=== PATIENT | female | born 1950 | race Caucasian/White ===

== ENCOUNTER → 2016-12-16 | Outpatient (CLI) | payer MEDICARE ==
[~2016-12-16] MED LIST: ATOR20TA PO; AZIT-14 PO; DEXALENT; DEXL60CA PO; DEXOLANT; ESTR42.53 TP; FLUC200T PO; FLUCONAZOLE; METH4TAB6 PO; PILO5TAB PO; THYR30TA PO; [UNRECOGNIZED DRUG - CODE] SQ
== END | disposition home or self-care (01) ==
LOC: ROC 11:13
PROVIDERS: ATTEND Radiology Radiation Oncology
DX: C10.2 Malignant neoplasm of lateral wall of oropharynx (principal)
CPT/HCPCS: G0463

== ENCOUNTER → 2017-05-05 | Outpatient (CLI) | payer MEDICARE ==
[~2017-05-05] MED LIST changes: -AZIT-14 PO; +AZIT250T89 PO; +BIOT300T2 PO; +CHOL10003 PO; +UBID100C24 PO; +[UNRECOGNIZED DRUG - OTHER] PO
== END | disposition home or self-care (01) ==
LOC: STAR 12:54
PROVIDERS: ATTEND Thoracic Surgery (Cardiothoracic Vascular Surgery)
DX: Z01.818 Encounter for other preprocedural examination (principal); K80.20 Calculus of gallbladder without cholecystitis without obstruction; K21.9 Gastro-esophageal reflux disease without esophagitis
CPT/HCPCS: 93005

== ENCOUNTER 2017-05-14 08:44 | Day surgery (SDC) | payer MEDICARE ==
[~2017-05-14] VITALS: Ht 157.5 cm; Wt 59.1 kg
[~2017-05-14 08:44] MED LIST changes: -DEXL60CA PO; +DEXL60CA2 PO
[2017-05-14] MEDS ORDERED: MIDAZOLAM 1 MG/ML, 2ML ONE (09:19)
[2017-05-14] MEDS ORDERED: FENTANYL PF 100 MCG/2ML ONE ×3 (09:19→10:35)
[2017-05-14] MEDS ORDERED: BUPIVACAINE/PF 0.5% ONE (09:41)
[2017-05-14] MEDS ORDERED: SCOPOLAMINE PATCH, 1.5MG PATCH.TD72 TD ONE ×2 (09:48)
[2017-05-14] MEDS ORDERED: PROPOFOL 10 MG/ML, 20ML ONE (09:51)
[2017-05-14] MEDS ORDERED: ONDANSETRON 2MG/ML, 2ML ONE (09:51)
[2017-05-14] MEDS ORDERED: ROCURONIUM 10 MG/ML ONE (09:51)
[2017-05-14] MEDS ORDERED: NEOSTIGMINE 1 MG/ML, 10ML ONE (09:51)
[2017-05-14] MEDS ORDERED: GLYCOPYRROLATE 0.2MG/1ML ONE (09:51)
[2017-05-14] MEDS ORDERED: DEXAMETHASONE 4 MG/ML, 1ML ONE (09:51)
[2017-05-14] MEDS ORDERED: SUCCINYLCHOLINE 20 MG/ML, 10ML ONE (09:51)
[2017-05-14] MEDS ORDERED: CLINDAMYCIN 150 MG/ML, 6ML ONE (09:52)
[2017-05-14] MEDS ORDERED: LACTATED RINGERS 1,000 ML IV SCH (10:33)
[2017-05-14] MEDS: FENTANYL PF 100 MCG/2ML IV PRN ×3 (10:35→11:12)
[2017-05-14] MEDS ORDERED: OXYcodone 5 MG/5 ML ORAL.SOL UDC ONE (10:35)
[2017-05-14] MEDS ORDERED: HYDROmorphone 1 MG/ML, 1ML ONE (10:35)
[2017-05-14] MEDS: HYDROmorphone 1 MG/ML, 1ML IV PRN ×3 (10:42→11:11)
[2017-05-14] MEDS ORDERED: morphine SULFATE 10 MG/ML, 1ML IVPush PRN (11:00)
[2017-05-14] MEDS ORDERED: ONDANSETRON 2MG/ML, 2ML IVPush PRN (11:00)
[2017-05-14] MEDS ORDERED: OXYcodone 5 MG/5 ML ORAL.SOL UDC PO PRN ×2 (11:00)
== END 2017-05-14 14:40 | disposition home or self-care (01) ==
LOC: OUT 08:44
PROVIDERS: ATTEND Thoracic Surgery (Cardiothoracic Vascular Surgery)
DX: K80.10 Calculus of gallbladder with chronic cholecystitis without obstruction (principal); K21.9 Gastro-esophageal reflux disease without esophagitis; Z85.850 Personal history of malignant neoplasm of thyroid; Z90.710 Acquired absence of both cervix and uterus; Z98.890 Other specified postprocedural states; Z88.2 Allergy status to sulfonamides; Z88.8 Allergy status to other drugs, medicaments and biological substances
CPT/HCPCS: 47562; 88304; J0330; J1100; J1170; J2250; J2405; J2704; J2710; J3010; J3490

== ENCOUNTER 2017-08-14 10:54 | Day surgery (SDC) | payer MEDICARE ==
[~2017-08-14] VITALS: Ht 157.5 cm; Wt 59.0 kg
[~2017-08-14 10:54] MED LIST changes: +ATOR40TA PO; +THYR60TA PO
[2017-08-14] MEDS ORDERED: LACTATED RINGERS 1,000 ML IV SCH (11:04)
[2017-08-14 11:19] VITALS: BP 125/85
[2017-08-14] MEDS ORDERED: PROPOFOL 10 MG/ML, 20ML ONE (13:00)
[2017-08-14] MEDS ORDERED: MIDAZOLAM 1 MG/ML, 2ML ONE (13:17)
== END 2017-08-14 15:10 ==
LOC: OUT 10:54
PROVIDERS: ATTEND Internal Medicine Gastroenterology
DX: K22.2 Esophageal obstruction (principal); K44.9 Diaphragmatic hernia without obstruction or gangrene; E78.5 Hyperlipidemia, unspecified; K21.9 Gastro-esophageal reflux disease without esophagitis; E03.9 Hypothyroidism, unspecified; Z98.890 Other specified postprocedural states; Z90.710 Acquired absence of both cervix and uterus
CPT/HCPCS: 43248; J2250; J2704; J7120

== ENCOUNTER → 2017-10-15 | Outpatient (CLI) | payer MEDICARE | LOC: ROC 10:41 | PROVIDERS: ATTEND Radiology Radiation Oncology | DX: C01 Malignant neoplasm of base of tongue (principal); Z92.3 Personal history of irradiation | CPT/HCPCS: G0463 ==

== ENCOUNTER → 2018-03-19 | Outpatient (CLI) | payer MEDICARE | END | disposition home or self-care (01) | LOC: ROC 08:20 | PROVIDERS: ATTEND Radiology Radiation Oncology | DX: Z08 Encounter for follow-up examination after completed treatment for malignant neoplasm (principal); D00.07 Carcinoma in situ of tongue | CPT/HCPCS: G0463 ==

== ENCOUNTER → 2018-06-19 | Outpatient (CLI) | payer MEDICARE ==
[~2018-06-19] MED LIST changes: +ASCO100019 PO; +LACT1CAP40 PO; +ROSU10TA PO
[2018-06-19 11:16] LABS: ALANINE AMINOTRANSFERASE 29 U/L (12-78); ALBUMIN 3.9 g/dL (3.4-5.0); ANION GAP 5 mmol/L (5-15); CALCIUM 8.7 mg/dL (8.5-10.1); CHLORIDE 109 mmol/L (98-107); CREATININE 0.56 mg/dL (0.55-1.02)
[2018-06-19 11:17] LABS: ALKALINE PHOSPHATASE 63 U/L (45-117); BILIRUBIN,TOTAL 0.4 mg/dL (0.2-1.0); TOTAL PROTEIN 7.2 g/dL (6.4-8.2)
[2018-06-19 12:15] LABS: BASOPHILS # (AUTO) 0.04 x10^3/uL (0-0.1); BASOPHILS % (AUTO) 0 % (0-1); EOSINOPHILS # (AUTO) 0.25 x10^3/uL (0-0.4); EOSINOPHILS % (AUTO) 3 % (1-7); LYMPHOCYTES # (AUTO) 1.45 x10^3/uL (1-3.4); LYMPHOCYTES % (AUTO) 15 % (22-44); MD NO; MEAN CORPUSCULAR HEMOGLOBIN 31.1 pg (27.0-34.8); MEAN CORPUSCULAR HGB CONC 34.3 g/dL (32.4-35.8); MEAN CORPUSCULAR VOLUME 90.6 fL (80-100); MEAN PLATELET VOLUME 9.6 fL (7.4-10.4); MONOCYTES # (AUTO) 0.37 x10^3/uL (0.2-0.8); MONOCYTES % (AUTO) 4 % (2-9); NEUTROPHILS # (AUTO) 7.42 x10^3/uL (1.8-6.8); NEUTROPHILS % (AUTO) 78 % (42-75); PLATELET COUNT 239 x10^3/uL (130-400); RED BLOOD COUNT 4.46 x10^6/uL (3.82-5.3); RED CELL DISTRIBUTION WIDTH 13.8 % (9.6-15.2)
== END | disposition home or self-care (01) ==
LOC: STAR 10:15
PROVIDERS: ATTEND Internal Medicine Cardiovascular Disease
DX: Z01.818 Encounter for other preprocedural examination (principal)
CPT/HCPCS: 36415; 71046; 80053; 85025

== ENCOUNTER 2018-06-23 06:27 | Day surgery (SDC) | payer MEDICARE ==
[~2018-06-23] VITALS: Ht 157.5 cm; Wt 60.0 kg
[2018-06-23] MEDS ORDERED: SODIUM CHLORIDE 0.9% 1,000 ML IV SCH (06:48)
[2018-06-23] MEDS ORDERED: MIDAZOLAM 1 MG/ML, 2ML ONE ×2 (08:06→09:05)
[2018-06-23] MEDS ORDERED: FENTANYL PF 100 MCG/2ML ONE (08:07)
[2018-06-23] MEDS ORDERED: ISOPROTERENOL 0.2MG/ML, 5ML ONE (08:07)
[2018-06-23] MEDS ORDERED: ADENOSINE 6 MG/2 ML ONE (08:07)
[2018-06-23] MEDS ORDERED: BUPIVACAINE 0.25% ONE (08:13)
[2018-06-23] MEDS ORDERED: ACETAMINOPHEN 325 MG TABLET PO PRN (10:00)
[2018-06-23] MEDS ORDERED: TEMPLATE NON-FORMULARY MED. (Thyroid** (Armour Thyroid**) 60 MG) PO SCH (10:00)
[2018-06-23] MEDS ORDERED: ESTRADIOL 0.1 MG TP SCH (10:00)
[2018-06-23] MEDS ORDERED: TEMPLATE NON-FORMULARY MED. (Rosuvastatin Calcium** (Crestor**) 10 MG) PO SCH (21:00)
[2018-06-24] MEDS ORDERED: [UNRECOGNIZED DRUG - REMARK] PO SCH (09:00)
[2018-06-24] MEDS ORDERED: TEMPLATE NON-FORMULARY MED. (Dexlansoprazole** (Dexilant**) 60 MG) PO SCH (09:00)
[2018-06-24] MEDS ORDERED: TEMPLATE NON-FORMULARY MED. (Ascorbic Acid** (Vitamin C**) 1,000 MG) PO SCH (09:00)
== END 2018-06-23 13:51 | disposition home or self-care (01) ==
LOC: CACL 06:27
PROVIDERS: ATTEND Internal Medicine Cardiovascular Disease
DX: I47.1 Supraventricular tachycardia (principal); E78.5 Hyperlipidemia, unspecified; K21.9 Gastro-esophageal reflux disease without esophagitis; E03.9 Hypothyroidism, unspecified; Z79.82 Long term (current) use of aspirin; Z98.890 Other specified postprocedural states; Z87.39 Personal history of other diseases of the musculoskeletal system and connective tissue; Z88.1 Allergy status to other antibiotic agents; Z88.8 Allergy status to other drugs, medicaments and biological substances
CPT/HCPCS: 93613; 93621; 93623; 93653; 99156; 99157; C1730; C1894; C2630; J2250; J3010; J3490; J0153

== ENCOUNTER 2018-09-28 09:00 | Outpatient (CLI) | payer MEDICARE ==
[~2018-09-28 09:00] MED LIST changes: -BIOT300T2 PO; +BIOT300T3 PO
== END 2018-09-28 23:59 | disposition home or self-care (01) ==
LOC: ROC 09:00
PROVIDERS: ATTEND Radiology Radiation Oncology
DX: C10.2 Malignant neoplasm of lateral wall of oropharynx (principal)
CPT/HCPCS: G0463

== ENCOUNTER 2019-12-25 20:03 | Emergency (ER) | payer MEDICARE ==
[~2019-12-25] VITALS: Ht 157.5 cm; Wt 66.9 kg
[~2019-12-25 20:03] MED LIST changes: -BIOT300T3 PO; +BIOT300T5 PO; -ROSU10TA PO; +ROSU10TA2 PO
--- NOTE | 2019-12-25 20:21 | NUR ---
PT TO ED WITH FOOSH OF RIGHT WRIST. WRIST SWOLLEN, PT REPORTS SENSATION INTACT, ABLE TO MOVE FINGERS WITH PAIN. IMAGING IN ROOM AT THIS TIME. PT REPORTS PAIN, BUT REFUSING MEDICATIONS AT THIS TIME. MONITORING APPLIED, CALL LIGHT WITHIN REACH, ALL SAFETY MEASURES IN PLACE.
[2019-12-25] MEDS ORDERED: ACETAMINOPHEN 500 MG TABLET ONE (20:30)
[2019-12-25] MEDS ORDERED: ACETAMINOPHEN 325 MG TABLET PO ONE (20:30)
[2019-12-25 21:19] VITALS: BP 118/75
== END 2019-12-25 22:20 | disposition home or self-care (01) ==
LOC: ED 20:30
DX: S52.571A Other intraarticular fracture of lower end of right radius, initial encounter for closed fracture (principal); K21.9 Gastro-esophageal reflux disease without esophagitis; E05.90 Thyrotoxicosis, unspecified without thyrotoxic crisis or storm; I47.1 Supraventricular tachycardia; I11.9 Hypertensive heart disease without heart failure; Z85.21 Personal history of malignant neoplasm of larynx; W01.0XXA Fall on same level from slipping, tripping and stumbling without subsequent striking against object, initial encounter; Y93.89 Activity, other specified; Y92.009 Unspecified place in unspecified non-institutional (private) residence as the place of occurrence of the external cause; Y99.8 Other external cause status
CPT/HCPCS: 29125; 99283

== ENCOUNTER → 2021-02-02 | Outpatient (CLI) | payer MEDICARE | END | disposition home or self-care (01) | LOC: CFH 06:42 | PROVIDERS: ATTEND Internal Medicine Cardiovascular Disease | DX: I08.8 Other rheumatic multiple valve diseases (principal); I10 Essential (primary) hypertension; E78.5 Hyperlipidemia, unspecified; I25.10 Atherosclerotic heart disease of native coronary artery without angina pectoris | CPT/HCPCS: 78452; 93017; 93306; A9502 ==